=== PATIENT | female | born 2000 | race Caucasian/White ===

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

== ENCOUNTER 2020-09-02 12:44 | Emergency (ER) | payer OTHER ==
[2020-09-02] MEDS: Lidocaine 1% 10 ML MDV INJECT ONE (13:20)
--- NOTE | 2020-09-02 13:42 | EDM.PDOC ---
ED HPI GENERAL MEDICAL PROBLEM - General Chief Complaint: Laceration Stated Complaint: R THUMB LAC Time Seen by Provider: 09/02/20 12:55 Source of Information: Reports: Patient History Limitations: Reports: No Limitations - History of Present Illness INITIAL COMMENTS - FREE TEXT/NARRATIVE: 20 year old female presents to the ED with complaints of laceration to her thumb at the IP joint on the dorsal side. Pt states that she immediately rinsed the wound in water and then poured salt in it then applied a pressure dressing. Unknown status of tetanus shot. Right Finger-Thumb Pain Score (Numeric/FACES): 5 - Related Data Allergies Allergy/AdvReac Type Severity Reaction Status Date / Time No Known Allergies Allergy Verified 05/03/17 11:39 Home Meds: Home Meds Colace. 1 tab PO DAILY 05/03/17 [History] Lexapro. 1 tab PO DAILY 05/03/17 [History] Lorazepam. 1 tab PO DAILY 05/03/17 [History] Protonix. 1 tab PO DAILY 05/03/17 [History] Past Medical History - Past Health History Medical/Surgical History: Denies Medical/Surgical History Gastrointestinal History: Reports: Chronic Constipation, GERD Psychiatric History: Reports: Anxiety, Depression - Infectious Disease History Infectious Disease History: Reports: Chicken Pox Social & Family History - Family History Family Medical History: No Pertinent Family History - Tobacco Use Tobacco Use Status *Q: Current Every Day Tobacco User Years of Tobacco use: 2 Packs/Tins Daily: 1 - Caffeine Use Caffeine Use: Reports: Coffee, Energy Drinks, Soda, Tea - Recreational Drug Use Recreational Drug Use: No - Living Situation & Occupation Occupation: Student ED ROS GENERAL - Review of Systems Review Of Systems: Comprehensive ROS is negative, except as noted in HPI. ED EXAM, SKIN/RASH Exam: See Below Exam Limited By: No Limitations General Appearance: Alert, WD/WN, No Apparent Distress Ears: Normal External Exam, Hearing Grossly Normal Nose: Normal Inspection Throat/Mouth: Normal Inspection, Normal Voice, No Airway Compromise Head: Atraumatic, Normocephalic Neck: Normal Inspection, Supple, Full Range of Motion Respiratory/Chest: No Respiratory Distress, No Accessory Muscle Use GI/Abdominal: No Distention (Female) Exam: Deferred Rectal (Female) Exam: Deferred Back Exam: Normal Inspection, Full Range of Motion Extremities: Normal Inspection, Normal Range of Motion, No Pedal Edema, Normal Capillary Refill Neurological: Alert, Oriented, Normal Cognition Psychiatric: Normal Affect, Anxious Skin: Warm, Dry, Normal Color, No Rash, Wound/Incision (1.5 cm lac to right IP joint of thumb on the dorsal side) Location, Skin: Upper Extremity, Right Characteristics: Linear Associated features: Tenderness Lymphatic: No Adenopathy ED SKIN PROCEDURES - Laceration/Wound Repair Right Digit - 1st (Thumb) Appearance: Subcutaneous Anesthetic Type: Local Local Anesthesia - Lidocaine (Xylocaine): 1% Plain Local Anesthetic Volume: 2cc Closed with: Sutures Lac/Wound length In cm: 1.5 Suture Size: 4-0 # of Sutures: 5 Suture Type: Nylon Course - Vital Signs Text/Narrative:: 1.5 cm subcutaneous laceration noted to IP joint on the dorsal side of right thumb. This occurred just prior to arrival. Pt states that she was at work and cut it on a can. Bleeding is controlled. Unknown status of tetanus. Last Recorded V/S: Last Vital Signs Temp 99.4 F 09/02/20 12:56 Pulse 79 09/02/20 12:56 Resp 20 09/02/20 12:56 BP 124/74 09/02/20 12:56 Pulse Ox 100 09/02/20 12:56 - Orders/Labs/Meds Orders: Active Orders 24 hr Category Date Time Status Vaccines to be Administered [RC] PER UNIT ROUTINE Care 09/02/20 13:17 Active Meds: Medications Discontinued Medications Generic Name Dose Route Start Last Admin Trade Name Freq PRN Reason Stop Dose Admin Diphtheria/Tetanus/Acell Pertussis 0.5 ml 09/02/20 13:17 Diphtheria,Pertussis(Acell),Tetanus Vaccine 0.5 Ml Syringe IM 09/02/20 13:18 .ONCE ONE Lidocaine HCl 10 ml 09/02/20 13:04 09/02/20 13:20 Lidocaine 1% 10 Ml Mdv INJECT 09/02/20 13:05 10 ml ONETIME ONE Administration Departure - Departure Time of Disposition: 13:39 Disposition: Home, Self-Care 01 Condition: Good Clinical Impression: Laceration - Discharge Information Instructions: Laceration Care, Adult, [id number] Referrals: PCP,None [Primary Care Provider] - Forms: ED Department Discharge Additional Instructions: You were seen in the ER for a laceration to your right thumb. 5 sutures were placed and your tetanus shot was updated. Keep documentation of your tetanus somewhere. You will need to keep the dressing on for 24 hours. Then clean the wound with gentle soap like dial or michael's baby shampoo twice daily and pat to dry. May keep bacitracin on the wound after cleaning. Sutures will need to come out in 10 to 14 days. Do not submerse or soak the wound in water for an extended period of time. Watch for signs of infection such as drainage, increased warmth or swelling. Sepsis Event Note (ED) - Evaluation Sepsis Screening Result: No Definite Risk - Focused Exam Vital Signs: Vital Signs Temp Pulse Resp BP Pulse Ox 09/02/20 12:56 99.4 F 79 20 124/74 100 - My Orders Last 24 Hours: My Active Orders 09/02/20 13:17 Vaccines to be Administered [RC] PER UNIT ROUTINE - Assessment/Plan Last 24 Hours: My Active Orders 09/02/20 13:17 Vaccines to be Administered [RC] PER UNIT ROUTINE
[2020-09-02] MEDS: Diphtheria,Pertussis(Acell),Tetanus Vaccine 0.5 ML Syringe IM ONE (13:45)
== END 2020-09-02 14:10 | disposition home or self-care (01) ==
LOC: JD.ED 12:44
DX: S61.011A Laceration without foreign body of right thumb without damage to nail, initial encounter (principal); Z72.0 Tobacco use; Z79.899 Other long term (current) drug therapy; Z23 Encounter for immunization; W26.9XXA Contact with unspecified sharp object(s), initial encounter
CPT/HCPCS: 12001; 90471; 90715; 99282; 99282-25

== ENCOUNTER 2021-12-11 02:56 | Inpatient (IN) | payer BC ==
[2021-12-11] MEDS ORDERED: Calcium Carbonate 500 MG Tab.Chew PO PRN (07:55)
[2021-12-11] MEDS ORDERED: Famotidine 20 MG Tab PO PRN (07:55)
[2021-12-11] MEDS ORDERED: Sodium Chloride 0.9% 10 ML Syringe FLUSH PRN (07:55)
[2021-12-11] MEDS ORDERED: Nalbuphine HCl 10 MG/ 1ML Amp IVPUSH PRN (07:55)
[2021-12-11] MEDS ORDERED: Oxytocin/Lactated Ringers 10 UNIT/1,000 ML BAG IV SCH (08:00)
[2021-12-11] MEDS: Lactated Ringers 1,000 ML IV SCH ×4 (08:28→22:20)
[2021-12-11] MEDS ORDERED: diphenhydrAMINE 50 MG/ML SDV IVPUSH PRN (15:55)
[2021-12-11] MEDS ORDERED: Bupivacaine/fentaNYL/NS 100 ML Bag EPIDUR PRN (15:55)
[2021-12-11] MEDS ORDERED: ePHEDrine 50 MG/ML SDV IVPUSH PRN (15:55)
[2021-12-11] MEDS ORDERED: fentaNYL 100 MCG/2 ML SDV EPIDUR PRN (15:55)
[2021-12-11] MEDS: Ondansetron 4 MG/2 ML SDV IVPUSH PRN (20:18)
[2021-12-12] MEDS ORDERED: Bupivacaine 0.25% 10 ML SDV ONE
[2021-12-12] MEDS: Sodium Chloride 0.9% 10 ML Syringe FLUSH SCH (00:20)
[2021-12-12] MEDS: Ondansetron 4 MG/2 ML SDV IVPUSH PRN (01:13)
[2021-12-12] MEDS ORDERED: Witch Hazel Medicated Pads 40/Jar TOP PRN (03:13)
[2021-12-12] MEDS ORDERED: Benzocaine/Menthol 20%-0.5% Spray 78 GM Cannister TOP PRN (03:13)
[2021-12-12] MEDS: Ibuprofen 600 MG Tab PO PRN ×4 (03:45→18:18)
[2021-12-12] MEDS: Acetaminophen 325 MG Tab PO PRN ×3 (03:46→17:11)
[2021-12-13] MEDS: Ibuprofen 600 MG Tab PO PRN (07:34)
[2021-12-13] MEDS: Ferrous Sulfate 324 MG Tab.EC PO SCH (07:35)
== END 2021-12-13 10:55 | disposition home or self-care (01) | DRG 560 ==
LOC: JD.OB 02:56 → OBSVTOIN 12-12 02:56 → JD.OB 12-12 02:57
PROVIDERS: ADMIT Family Medicine; ATTEND Family Medicine
PROC: 10E0XZZ Delivery of Products of Conception, External Approach (ICD-10-PCS; principal; 2021-12-12)
PROC: 10907ZC Drainage of Amniotic Fluid, Therapeutic from Products of Conception, Via Natural or Artificial Opening (ICD-10-PCS; 2021-12-12)
PROC: 3E033VJ Introduction of Other Hormone into Peripheral Vein, Percutaneous Approach (ICD-10-PCS; 2021-12-12)
PROC: 3E0R3BZ Introduction of Anesthetic Agent into Spinal Canal, Percutaneous Approach (ICD-10-PCS; 2021-12-12)
PROC: 00HU33Z Insertion of Infusion Device into Spinal Canal, Percutaneous Approach (ICD-10-PCS; 2021-12-12)
DX: O99.334 Smoking (tobacco) complicating childbirth (principal); Z37.0 Single live birth; F17.290 Nicotine dependence, other tobacco product, uncomplicated; O99.62 Diseases of the digestive system complicating childbirth; K21.9 Gastro-esophageal reflux disease without esophagitis; K59.09 Other constipation; O99.345 Other mental disorders complicating the puerperium; F32.A Depression, unspecified; O99.214 Obesity complicating childbirth; O71.82 Other specified trauma to perineum and vulva; O70.0 First degree perineal laceration during delivery; Z3A.39 39 weeks gestation of pregnancy
CPT/HCPCS: 01967; 36415; 51701; 51702; 59025; 59409; 85025; 85027; 86592; A9270-GY; J2405; J2590; J3010; J3490; J7120

== ENCOUNTER 2023-02-18 19:37 | Emergency (ER) | payer BC ==
[2023-02-18 20:19] LABS: BASOPHILS PERCENT AUTO 0.2 % (0.0-1.0); EOSINOPHILS PERCENT AUTO 0.2 % (0.0-6.0); HEMATOCRIT 31.2 % (37.0-47.0); HEMOGLOBIN 10.3 gm/dl (12.0-16.0); IMMATURE GRAN ABSOLUTE AUTO 0.01 K/mm3 (0.00-0.05); IMMATURE GRAN PERCENT AUTO 0.1 % (0.0-0.4); LYMPHOCYTES ABSOLUTE AUTO 2.6 K/mm3 (1.0-4.8); LYMPHOCYTES PERCENT AUTO 31.3 % (24.0-44.0); MEAN CORPUSCULAR HEMOGLOBIN 26.6 pg (28.0-32.0); MEAN CORPUSCULAR VOLUME 80.6 fl (83.0-99.0); MEAN PLATELET VOLUME 10.6 fl (9.4-12.3); MONOCYTES ABSOLUTE AUTO 0.5 K/mm3 (0.0-0.8); MONOCYTES PERCENT AUTO 5.7 % (0.0-8.0); NEUTROPHILS ABSOLUTE AUTO 5.1 K/mm3 (1.8-7.7); NEUTROPHILS PERCENT AUTO 62.5 % (41.0-71.0); PLATELET COUNT,PLT 232 K/mm3 (150-400); RED BLOOD CELL COUNT 3.87 M/mm3 (4.10-5.30); WHITE BLOOD CELL COUNT,WBC 8.14 K/mm3 (3.9-11.3)
[2023-02-18 21:01] LABS: APPEARANCE,URINE CLEAR (Clear); BILIRUBIN,URINE NEGATIVE (Negative); COLOR,URINE YELLOW (Yellow); GLUCOSE,URINE NEGATIVE (Negative); KETONES,URINE NEGATIVE (Negative); LEUKOCYTE ESTERASE,URINE TRACE (Negative); NITRITE,URINE NEGATIVE (Negative); OCCULT BLOOD,URINE NEGATIVE (Negative); PH,URINE 6.5 (5.0-8.0); PROTEIN,URINE NEGATIVE (Negative); UROBILINOGEN,URINE 0.2 (0.2-1.0)
[2023-02-18 21:01] LABS: A/G RATIO 0.8 (1-2); ALBUMIN 2.9 g/dl (3.4-5.0); ANION GAP 12.7 (5-15); BILIRUBIN TOTAL 0.2 mg/dL (0.2-1.0); BUN/CREATININE RATIO 11.7 (14-18); CALCIUM 8.7 mg/dL (8.5-10.1); CREATININE 0.6 mg/dL (0.55-1.02); EST CRCL DRUG DOSING (CG) 141.81 mL/min; POTASSIUM,K 3.7 mEq/L (3.5-5.1); PROTEIN TOTAL,TP 6.6 g/dl (6.4-8.2)
[2023-02-18 21:43] LABS: BACTERIA,URINE FEW /hpf (FEW); MUCUS,URINE FEW /hpf (FEW); RBC,URINE 0-5 /hpf (0-5); SQUAMOUS EPITHELIAL CELLS,UR 0-5 /hpf (0-5); WBC,URINE 0-5 /hpf (0-5)
== END 2023-02-18 21:45 | disposition home or self-care (01) ==
LOC: JD.ED 19:37
DX: O26.851 Spotting complicating pregnancy, first trimester (principal); O99.281 Endocrine, nutritional and metabolic diseases complicating pregnancy, first trimester; E66.9 Obesity, unspecified; O99.331 Smoking (tobacco) complicating pregnancy, first trimester; F17.210 Nicotine dependence, cigarettes, uncomplicated; Z79.899 Other long term (current) drug therapy; Z3A.13 13 weeks gestation of pregnancy
CPT/HCPCS: 36415; 76815; 76815-26; 80053; 81001; 84702; 85025; 99284